=== PATIENT | female | born 1970 | race Caucasian/White ===

== ENCOUNTER 2016-11-18 11:48 | Emergency (ER) | payer OTHER ==
[~2016-11-18] VITALS: Ht 170.1 cm; Wt 85.3 kg
[~2016-11-18 11:48] MED LIST: CLINDAMYCIN HC300 MG PO; FLONASE 0.05% 121 EA NAS; MOTRIN800 MG PO; Motrin,Rufen800 MG PO; NAPROSYN500 MG PO; NORCO 325 MG-51 TAB PO; Peridex 473 ML473 ML PO; ROBITUSSIN DM120 ML PO; VIBRAMYCIN100 MG PO; VICODIN 500 MG-1 TAB PO; ZITHROMAX Z PA250 MG PO; ZYRTEC10 MG PO
[2016-11-18] MEDS ORDERED: NAPROSYN500 MG PO (12:57)
[2016-11-18] MEDS ORDERED: MEDROL DOSEPAK4 MG PO (12:57)
== END 2016-11-18 12:52 | disposition home or self-care (01) ==
LOC: ED 11:48
DX: G56.03 Carpal tunnel syndrome, bilateral upper limbs (principal); F17.200 Nicotine dependence, unspecified, uncomplicated; Z88.0 Allergy status to penicillin

== ENCOUNTER 2017-09-17 14:35 | Emergency (ER) | payer OTHER ==
[~2017-09-17] VITALS: Wt 90.7 kg
[~2017-09-17 14:35] MED LIST changes: +MEDROL DOSEPAK4 MG PO
== END 2017-09-17 15:42 | disposition home or self-care (01) ==
LOC: ED 14:35
DX: S63.502A Unspecified sprain of left wrist, initial encounter (principal); F17.200 Nicotine dependence, unspecified, uncomplicated; Z98.51 Tubal ligation status; Z88.0 Allergy status to penicillin; Z98.890 Other specified postprocedural states; W19.XXXA Unspecified fall, initial encounter; Y93.89 Activity, other specified; Y92.69 Other specified industrial and construction area as the place of occurrence of the external cause; Y99.9 Unspecified external cause status

== ENCOUNTER 2017-10-06 15:57 | Emergency (ER) | payer OTHER ==
[~2017-10-06] VITALS: Wt 90.7 kg
[2017-10-06] MEDS ORDERED: NAPROSYN500 MG PO (18:06)
[2017-10-06] MEDS ORDERED: REGLAN10 M1 PO (18:06)
== END 2017-10-06 18:15 | disposition home or self-care (01) ==
LOC: ED 15:57
DX: R51 Headache (principal); F17.200 Nicotine dependence, unspecified, uncomplicated; F10.10 Alcohol abuse, uncomplicated; Z88.0 Allergy status to penicillin; Z79.899 Other long term (current) drug therapy

== ENCOUNTER 2017-11-27 17:38 | Emergency (ER) | payer OTHER ==
[~2017-11-27] VITALS: Ht 170.1 cm; Wt 81.6 kg
[~2017-11-27 17:38] MED LIST changes: +REGLAN10 M1 PO
[2017-11-27] MEDS ORDERED: NAPROSYN500 MG PO (19:49)
== END 2017-11-27 19:32 | disposition home or self-care (01) ==
LOC: ED 17:38
DX: S20.212A Contusion of left front wall of thorax, initial encounter (principal); F17.200 Nicotine dependence, unspecified, uncomplicated; Z98.51 Tubal ligation status; Z79.899 Other long term (current) drug therapy; Z88.0 Allergy status to penicillin; W22.8XXA Striking against or struck by other objects, initial encounter; Y93.89 Activity, other specified; Y92.69 Other specified industrial and construction area as the place of occurrence of the external cause; Y99.9 Unspecified external cause status

== ENCOUNTER → 2019-03-17 | Day surgery (SDC) | payer OTHER ==
[~2019-03-17] VITALS: Ht 170.1 cm; Wt 90.7 kg
[~2019-03-17] MED LIST changes: +OMEPRAZOLE20 M2 PO
--- NOTE | ~2019-03-17 | O ---
[place], [place] OPERATIVE NOTE NAME: DIPIKA JOSÉ UNIT #: [id number] ROOM: DOCTOR: PLACIDO CALHOUN,MANJULACLARKSBURGJORDANA BIRTHDATE: [birth year] DOS: 03/17/2019 HISTORY OF PRESENT ILLNESS: The patient is a 47-year-old has presented with chief complaint of epigastric abdominal pain, dysphagia, difficulty swallowing, to Emergency Room visit. SOCIAL HISTORY: Smoker, nonalcohol consumer. PAST MEDICAL HISTORY: Unremarkable. PAST SURGICAL HISTORY: Tubal ligation, carpal tunnel. procedures. Today's procedure part of investigation is panendoscopy plus brush for fungal evaluation of the esophageal suspected moniliasis plus a small distal esophageal foreign body pushed through. PREMEDICATION: Propofol. SCOPE: Olympus forward-viewing gastroscope Q10 video. REPORT: After putting the patient in left lateral position and application of lubricant to the scope, the scope was introduced. Thereafter, under direct visualization, I advanced through the length of esophagus without difficulty. Evidence of esophagitis secondary to previous distal esophageal stricture and foreign body was noticed. Scope was negotiated to the distal esophagus. A small foreign body was pushed through. Photographed in the gastric pouch. Gastritis seen. Biopsy taken of the antrum. Duodenal bulb, second and third part within normal limits. Scope was withdrawn. Baskin for fungal study from esophagus obtained. The patient extubated, tolerated the procedure well. IMPRESSION: 1. Distal esophageal foreign body, status post push through. 2. Esophagitis, status post brush for esophageal candidiasis, hiatal hernia. All has been recognized. 3. Status post biopsy of antrum. PLAN AND DISCUSSION: Awaiting brush for study. If positive, we are going to treat with Diflucan. Otherwise, at the present time, omeprazole 20 mg 1 daily. Thank you very much indeed for your kind referral. [place], [place] OPERATIVE NOTE NAME: PETRA JOSÉEkta Malone UNIT #: [id number] ROOM: DOCTOR: OANH CUMMINS MD BIRTHDATE: [birth year] OANH CUMMINS MD CM:OPRECORD:OPERATIVE NOTE [id number] OANH CUMMINS MD 04/07/19 1433 interface
[2019-03-17 17:09] VITALS: BP 127/80
[2019-03-17 17:24] VITALS: BP 120/84
[2019-03-17 17:39] VITALS: BP 127/83
== END | disposition home or self-care (01) ==
LOC: ED 10:56 → SDC 16:37
DX: K29.50 Unspecified chronic gastritis without bleeding (principal); Z98.890 Other specified postprocedural states; F17.210 Nicotine dependence, cigarettes, uncomplicated; K44.9 Diaphragmatic hernia without obstruction or gangrene; K20.8 Other esophagitis; Z88.0 Allergy status to penicillin; F41.9 Anxiety disorder, unspecified; F32.9 Major depressive disorder, single episode, unspecified

== ENCOUNTER 2019-09-08 19:40 | Inpatient (IN) | payer OTHER ==
[~2019-09-08] VITALS: Ht 170.1 cm; Wt 92.7 kg
--- NOTE | ~2019-09-08 | EKG ---
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
--- NOTE | ~2019-09-08 | EKG ---
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
--- NOTE | ~2019-09-08 | EKG ---
[place], [place] ELECTROCARDIOGRAM REPORT NAME: DIPIKA JOSÉ UNIT #: [id number] ROOM: 532 DOCTOR: SHA DRAFT REPORT BIRTHDATE: [birth year] [facility] Test Date: 2019-09-08 Test Time: 23:16:32 Pat Name: DIPIKA JOSÉ Department: Room: 532 Gender: F Federal Mediator: CHELY VALERA : 1970 Requested By: JAYRO HERNANDEZ Order Number: [id number] Reading MD: Cole Pretty Measurements Intervals [place] Rate: 73 P: 50 MT: 185 QRS: 40 QRSD: 94 T: 87 QT: 417 QTc: 460 Interpretive Statements Sinus rhythm Borderline low voltage, extremity leads Nonspecific T abnormalities, lateral leads Electronically Signed On 09-10-2019 7:39:34 PST by Cole Pretty CM:EKGRPT:ELECTROCARDIOGRAM REPORT [id number] 0739 JAYRO BEARD DRAFT REPORT JAYRO HERNANDEZ DO
--- NOTE | ~2019-09-08 | CON ---
[place], [place] REPORT OF CONSULTATION NAME: DIPIKA JOSÉ [facility] #: [id number] UNIT #: [id number] ROOM: 532 DOCTOR: BLAINE ACKERMAN MD BIRTHDATE: [birth year] DOS: 09/09/2019 CARDIOLOGY CONSULTATION REASON FOR CONSULTATION: Chest pain. HISTORY OF PRESENT ILLNESS: The patient is 48-year-old patient with history of acid reflux. No prior history of CAD, hypertension, diabetes, who presented to Emergency Room for chest pain. The patient woke up in the morning with chest pain, described this as a sharp pain across the chest wall in the midsternal area as well as some left-sided chest wall pain, does radiate towards her back and slightly gets worse with deep inspiration. No associated nausea, diaphoresis or shortness of breath. She was given sublingual nitroglycerin with minimal relief. She was admitted to the hospital and Cardiology consulted for further recommendations. She does smoke about a pack a day, but denies any exertional chest pains at home. No palpitation or dizziness. No nausea or vomiting. No fever and chills. No neurologic symptoms. No bladder or bowel symptoms, no genitourinary symptoms. The patient has had some occasional cough from the smoke, but no hemoptysis. REVIEW OF SYSTEMS: Review of 10 systems negative except as mentioned above. Her only complaint is sharp, constant chest pain, which is still there since yesterday. There is nothing that makes the pain better. It gets slightly worse with deep inspiration. PAST MEDICAL HISTORY: 1. Non-morbid obesity. 2. Acid reflux. 3. History of carpal tunnel syndrome. PAST SURGICAL HISTORY: History of carpal tunnel surgery and tubal ligation. SOCIAL HISTORY: The patient does smoke over pack a day, does not use illicit drugs, does not drink alcohol. FAMILY HISTORY: Mother at age 51 from sepsis. Father at age 46 from stroke. Father had history of diabetes. ALLERGIES: THE PATIENT IS ALLERGIC TO PENICILLIN. HOME MEDICATIONS: The patient takes omeprazole 20 mg daily. PHYSICAL EXAMINATION: VITAL SIGNS: Blood pressure 110/70, pulse 70, respiratory rate 16, weight 97.2 kg, BMI 32. GENERAL: Alert, comfortable, in no acute distress. HEAD AND NECK: Supple. No distended neck veins, no carotid bruit. CHEST: Symmetrical, nontender. LUNGS: A few scattered rhonchi, but good air entry bilaterally. HEART: Regular rhythm, no S3, no palpable thrills. [place], [place] REPORT OF CONSULTATION NAME: DIPIKA JOSÉ UNIT #: [id number] ROOM: [facility] DOCTOR: TYRON CALHOUN,BLAINE BIRTHDATE: [birth year] ABDOMEN: Bowel sounds normal. EXTREMITIES: Showed no edema. Distal pulses palpable. SKIN: Warm and dry. No cyanosis, no clubbing. RECTAL: Deferred. GENITOURINARY: Deferred. NEUROLOGIC: The patient is alert with no focal neurologic deficit. REVIEW OF THE DIAGNOSTIC TESTS: EKG, CBC, chemistry reviewed. EKG unremarkable, sinus rhythm with nonspecific ST changes. Cardiac troponins are negative x 3. Total cholesterol 239, LDL 149, triglycerides 324. IMPRESSION: 1. Chest pain, atypical, myocardial infarction ruled out. 2. Acid reflux. 3. Dyslipidemia. 4. Tobacco use. 5. Non-morbid obesity. RECOMMENDATIONS: 1. She was scheduled for treadmill stress test today. 2. Chest pain is atypical. Risk factor modification to quit smoking, diet, exercise and weight loss was discussed. 3. If the treadmill test is unremarkable, the patient can be discharged home today. The patient advised to look for a primary care physician in the area. Above recommendation discussed with the patient and all questions were answered. BLAINE ACKERMAN MD CM:CONSTR:REPORT OF CONSULTATION 1043 09/09/19 1348 interface
--- NOTE | ~2019-09-08 | ST ---
[place], [place] EXERCISE STRESS TEST REPORT NAME: DIPIKA JOSÉ [facility] #: [id number] UNIT #: [id number] ROOM: [facility] DOCTOR: TYRON CALHOUN,BLAINE BIRTHDATE: [birth year] DOS: 09/09/2019 TREADMILL TEST REASON FOR TEST: Chest pain. PHYSICAL EXAMINATION NECK: Supple. LUNGS: Clear anteriorly. HEART: Regular rhythm. PROTOCOL: Neftali protocol. TOTAL STRESS TIME: 7 minutes. FINDINGS: Maximum heart rate 164, 94% target heart rate. Total METS, 8.3 METS. SYMPTOMS: The patient is chest pain free. EKG: Resting EKG shows sinus rhythm. Stress EKG showed no ischemia. CONCLUSION: Clinically, the patient had resting chest pain of 3/10, which is unchanged during treadmill. EKG nonischemic. POST-STRESS COMPLICATIONS: None. BLAINE ACKERMAN MD CM:STRESS:EXERCISE STRESS TEST REPORT [id number] BLAINE ACKERMAN MD
[2019-09-08 19:45] VITALS: BP 122/824; BP 122/84
[2019-09-08 20:17] LABS: BASO # 0.1 10*3/uL (0.0-0.1); EOS # 0.1 10*3/uL (0.0-0.4); EOS % 1.2 % (1.0-4.0); HEMATOCRIT 42.4 % (37.0-47.0); HEMOGLOBIN 14.1 g/dl (12.0-16.0); LYMPH # 3.8 10*3/uL (1.3-4.4); LYMPH % 34.8 % (27.0-41.0); MEAN CORPUSCULAR HGB 29.9 pg (27.0-31.0); MEAN CORPUSCULAR HGB CONC 33.3 g/dl (33.0-37.0); MEAN PLATELET VOLUME 10.9 fl (9.6-12.3); MONO # 0.7 10*3/uL (0.1-1.0); MONO % 6.2 % (3.0-9.0); NEUT # 6.2 10*3/uL (2.3-7.9); NEUT % 56.4 % (47.0-73.0); PLATELET COUNT AUTOMATED 248 10*3/uL (130-400); RED BLOOD COUNT 4.71 10*6/uL (4.10-5.10); RED CELL DISTRI WIDTH 13.2 % (0-14.5); WHITE BLOOD COUNT 10.9 10*3/uL (4.8-10.8)
[2019-09-08 20:29] LABS: INTERNATIONAL NORM RATIO 0.9 (2.0-3.5)
[2019-09-08 20:47] LABS: ALBUMIN 3.5 gm/dl (3.1-4.5); ALKALINE PHOSPHATASE 96 U/L (45-117); BUN 14 mg/dl (7-24); CHLORIDE 107 mmol/L (98-107); CREATININE 0.89 mg/dL (0.55-1.02); POTASSIUM 3.5 mmol/L (3.5-5.1); SGOT/AST 17 IU/L (3-35); SGPT/ALT 20 U/L (12-78); SODIUM 140 mmol/L (136-145); TOTAL PROTEIN 7.4 gm/dL (6.4-8.2)
[2019-09-08 20:50] LABS: TROPONIN I < 0.015 ng/ml (<0.045)
[2019-09-08 21:11] VITALS: BP 126/82
[2019-09-08 21:20] LABS: BILIRUBIN NEGATIVE (NEGATIVE); BLOOD NEGATIVE (NEGATIVE); CLARITY CLEAR (CLEAR); COLOR YELLOW (YELLOW); GLUCOSE NEGATIVE (NEGATIVE); KETONE NEGATIVE (NEGATIVE); LEUKO ESTERASE NEGATIVE (NEGATIVE); NITRITE NEGATIVE (NEGATIVE); SPECIFIC GRAVITY 1.015 (1.005-1.030); UROBILINOGEN 0.2 E.U./dl (0.2-1.0)
[2019-09-08 21:25] LABS: BACTERIA 2+
[2019-09-08 22:03] VITALS: BP 121/77
--- NOTE | 2019-09-08 22:20 | NUR ---
A 48, admitted to , under the services of RODRIGO Thompson DO with a diagnosis of CHEST PAIN. Chief complaint is CHEST PAIN STARTING THIS AM. Patient arrived via stretcher from ER. Monitor applied. Initial assessment completed. Vital signs taken and recorded. RODRIGO THOMPSON DO notified of admission to the unit. Orders received. See assessment for past medical history, medications and allergies. Patient and/or family oriented to unit. [facility] visitation policy reviewed. Clothing/patient valuable form completed. THANH SALOMON
[2019-09-08 22:54] VITALS: BP 130/84
--- NOTE | 2019-09-08 23:28 | NUR ---
SPOKE WITH AMANDA (ANSWERING SERVICE) AT [facility] REGARDING CONSULT ORDER FOR DR. MONCADA.
[2019-09-09] VITALS: BP 111/71
[2019-09-09 06:57] LABS: BUN 14 mg/dl (7-24); CHLORIDE 106 mmol/L (98-107); CHOLESTEROL 239 mg/dL (<200); CREATININE 0.91 mg/dL (0.55-1.02); POTASSIUM 3.7 mmol/L (3.5-5.1); SODIUM 139 mmol/L (136-145)
[2019-09-09 06:59] LABS: HDL CHOLESTEROL 25 mg/dl (40-60); LDL CHOLESTEROL 149 mg/dL (9-159); PHOSPHOROUS 4.3 mg/dL (2.5-4.9); TRIGLYCERIDES 324 mg/dl (<150); VLDL CHOLESTEROL 65 mg/dL (6-40)
[2019-09-09 08:00] VITALS: BP 110/78
[2019-09-09 08:56] LABS: VITAMIN D, 25-HYDROXY 14.6 ng/mL (30-100)
--- NOTE | 2019-09-09 09:12 | NUR ---
PT OFF FLOOR VIA WHEELCHAIR FOR STRESS TEST WITH DR MONCADA.
--- NOTE | 2019-09-09 09:30 | NUR ---
INFORMED CONSENT OBTAINED FOR AN EXERCISE STANDARD STRESS TEST WITH DR. ACKERMAN. RESITNG EKG NSR WITH RARE PVC WITH A RESTING HT RT OFF 66 AND BP OF 104/70 AND A HT RT OF 82 WITH A BP OF 102/84 IN THE STANDING POSITION. PT COMPLETED 7:00 OF A BRYAN PROTOCOL WITH COMPLETION OF 1:00 MINUTE INTO STAGE III AT 3.4 MPH AND A 14% GRADE. REACHED A PEAK HT RT OF 164 WHICH IS 95% OF THE PREDICTED MAX WITH A PEAK BP OF 152/70. TEST TERMINATED DUE TO FATIGUE. VOICED CHEST PRESSURE AT THE BEGINNING OF THE TEST / THAT NEVER CHANGED DURING EXERISE. HAS AN AVERAGE EXERCISE TOLERANCE. LAST RECOVERY HT RT OF 98, WITH A BP OF 128/74. TKEN BACK TO HER ROOM IN STABLE CONDITION.
--- NOTE | 2019-09-09 10:53 | NUR ---
DR ACKERMAN ROUNDED AND CLEARED PT FOR D/C FROM CARDIAC STANDPOINT.
--- NOTE | 2019-09-09 10:59 | NUR ---
DR DAVIS ROUNDED AND SEEN PT. NOTIFIED HIM OF DR ACKERMAN CLEARING HER FOR D/C FROM CARDIAC STANDPOINT.
[2019-09-09] MEDS ORDERED: VITAMIN D32000 UNIT PO (11:37)
--- NOTE | 2019-09-09 11:45 | NUR ---
Riding Teacher in to talk to patient. Patient states lives at HOME with AND DAUGHTER. There are FEW steps in the home. Physician: NONE Pharmacy: [facility] Home health services: NONE Patient's level of ADLs: INDEPENDENT Patient has working utilities: YES DME: NONE Follow-up physician's appointment after d/c: WILL FIND ONE AND MAKE APPOINTMENT AFTER DISCHARGE Does patient want to access PORTAL?: NO Discharge plan PT LIVES AT HOME WITH FAMILY AND IS INDEPENDENT IN HER CARE. DENIES SHE WILL HAVE NEEDS ON DISCHARGE. PLANS TO RETURN HOME WHEN MEDICALLY STABLE. WILL CONTINUE TO FOLLOW. STATES SHE WILL HAVE A RIDE HOME.. TRINA RENDON
[2019-09-09 12:00] VITALS: BP 114/83
--- NOTE | 2019-09-09 12:23 | NUR ---
Discharge instructions reviewed with patient/family. Patient receptive and verbalizes understanding. Follow-up care arranged. Written instructions given to patient/family. WATSON ROMERO
== END 2019-09-09 12:23 | disposition home or self-care (01) | DRG 243 ==
LOC: ED 19:40 → EDHOLD 21:07 → 5E 21:07
PROVIDERS: Emergency Medicine; Student in an Organized Health Care Education/Training Program; ADMIT Internal Medicine
PROC: 4A02XM4 Measurement of Cardiac Total Activity, External Approach (ICD-10-PCS; principal; 2019-09-09)
DX: K21.9 Gastro-esophageal reflux disease without esophagitis (principal); F41.9 Anxiety disorder, unspecified; R07.89 Other chest pain; E44.0 Moderate protein-calorie malnutrition; G56.03 Carpal tunnel syndrome, bilateral upper limbs; F17.210 Nicotine dependence, cigarettes, uncomplicated; R73.9 Hyperglycemia, unspecified; E78.5 Hyperlipidemia, unspecified; E55.9 Vitamin D deficiency, unspecified; E53.8 Deficiency of other specified B group vitamins; E66.8 Other obesity; Z82.49 Family history of ischemic heart disease and other diseases of the circulatory system; Z88.0 Allergy status to penicillin; Z79.899 Other long term (current) drug therapy; Z98.51 Tubal ligation status; Z83.3 Family history of diabetes mellitus; Z82.3 Family history of stroke; Z71.6 Tobacco abuse counseling; Z68.32 Body mass index [BMI] 32.0-32.9, adult

== ENCOUNTER → 2019-09-23 | Outpatient (CLI) | payer OTHER ==
[~2019-09-23] MED LIST changes: +VITAMIN D32000 UNIT PO
== END | disposition home or self-care (01) ==
LOC: RESCLI 00:18
DX: E53.8 Deficiency of other specified B group vitamins (principal); E55.9 Vitamin D deficiency, unspecified; E78.1 Pure hyperglyceridemia; F51.01 Primary insomnia; K21.9 Gastro-esophageal reflux disease without esophagitis; M19.90 Unspecified osteoarthritis, unspecified site; F31.9 Bipolar disorder, unspecified; F17.210 Nicotine dependence, cigarettes, uncomplicated; Z71.6 Tobacco abuse counseling; Z79.899 Other long term (current) drug therapy

== ENCOUNTER → 2020-11-23 | Outpatient (CLI) | payer OTHER | END | disposition home or self-care (01) | LOC: COVID19 12:15 | PROVIDERS: ATTEND Internal Medicine | DX: Z20.822 Contact with and (suspected) exposure to COVID-19 (principal) ==

== ENCOUNTER → 2021-01-02 | Outpatient (CLI) | payer OTHER | END | disposition home or self-care (01) | LOC: RAD 17:25 | PROVIDERS: ATTEND Nurse Practitioner | DX: M25.551 Pain in right hip (principal) ==

== ENCOUNTER → 2021-10-09 | Outpatient (CLI) | payer OTHER | END | disposition home or self-care (01) | LOC: COVID19 14:55 | PROVIDERS: ATTEND Internal Medicine | DX: U07.1 COVID-19 (principal) ==

== ENCOUNTER → 2022-05-30 | Day surgery (SDC) | payer OTHER ==
[~2022-05-30] VITALS: Ht 170.1 cm; Wt 94.8 kg
[~2022-05-30] MED LIST changes: +FISH OIL 1,2001 EAC6 PO; +LIPITOR10 MG PO
[2022-05-30 07:38] VITALS: BP 128/86
[2022-05-30 08:35] VITALS: BP 117/75
[2022-05-30 08:51] VITALS: BP 118/62
[2022-05-30 09:05] VITALS: BP 135/88
== END | disposition home or self-care (01) ==
LOC: SDC 05-27 09:30
PROVIDERS: ATTEND Surgery
DX: Z12.11 Encounter for screening for malignant neoplasm of colon (principal); K63.5 Polyp of colon; K21.9 Gastro-esophageal reflux disease without esophagitis; E78.00 Pure hypercholesterolemia, unspecified; F17.210 Nicotine dependence, cigarettes, uncomplicated; Z88.0 Allergy status to penicillin; Z79.899 Other long term (current) drug therapy

== ENCOUNTER 2022-10-22 12:16 | Emergency (ER) | payer OTHER ==
[~2022-10-22] VITALS: Ht 170.1 cm; Wt 92.1 kg
[2022-10-22 16:23] LABS: BASO # 0.1 10*3/uL (0.0-0.1); BASO % 1.1 % (0.0-1.0); EOS % 0.2 % (1.0-4.0); HEMATOCRIT 40.1 % (37.0-47.0); LYMPH # 1.1 10*3/uL (1.3-4.4); LYMPH % 20.4 % (27.0-41.0); MEAN CELL VOLUME 87.7 fl (81.0-99.0); MEAN CORPUSCULAR HGB 29.3 pg (27.0-31.0); MEAN CORPUSCULAR HGB CONC 33.4 g/dl (33.0-37.0); MEAN PLATELET VOLUME 10.7 fl (9.6-12.3); MONO # 0.6 10*3/uL (0.1-1.0); MONO % 10.7 % (3.0-9.0); NEUT # 3.5 10*3/uL (2.3-7.9); NEUT % 67.2 % (47.0-73.0); PLATELET COUNT AUTOMATED 165 10*3/uL (130-400); RED BLOOD COUNT 4.57 10*6/uL (4.10-5.10); RED CELL DISTRI WIDTH 13.3 % (0-14.5); WHITE BLOOD COUNT 5.3 10*3/uL (4.8-10.8)
[2022-10-22 16:43] LABS: ALKALINE PHOSPHATASE 79 U/L (46-116); BUN 6 mg/dl (9-23); CHLORIDE 103 mmol/L (98-107); CREATININE 0.83 mg/dL (0.55-1.02); POTASSIUM 3.4 mmol/L (3.4-5.1); SGPT/ALT 23 U/L (10-49); SODIUM 136 mmol/L (136-145)
[2022-10-22] MEDS ORDERED: DOXYCYCLINE HY100 M3 PO (16:54)
[2022-10-22] MEDS ORDERED: PREDNISONE10 MG PO (16:54)
[2022-10-22] MEDS ORDERED: PROVENTIL HFA6.7 GM INH (16:55)
== END 2022-10-22 17:07 | disposition home or self-care (01) ==
LOC: ED 12:16
PROVIDERS: Family Medicine
DX: J18.1 Lobar pneumonia, unspecified organism (principal); Z20.822 Contact with and (suspected) exposure to COVID-19; J44.1 Chronic obstructive pulmonary disease with (acute) exacerbation; F17.200 Nicotine dependence, unspecified, uncomplicated; Z88.0 Allergy status to penicillin; Z79.899 Other long term (current) drug therapy; Z98.51 Tubal ligation status; Z98.890 Other specified postprocedural states

== ENCOUNTER 2022-10-28 17:18 | Emergency (ER) | payer OTHER ==
[~2022-10-28 17:18] MED LIST changes: +DOXYCYCLINE HY100 M3 PO; +PREDNISONE10 MG PO; +PROVENTIL HFA6.7 GM INH
== END 2022-10-28 18:06 | disposition left against medical advice (07) ==
LOC: ED 17:18
DX: R06.02 Shortness of breath (principal); Z53.21 Procedure and treatment not carried out due to patient leaving prior to being seen by health care provider